=== PATIENT | male | born 2005 | race Caucasian/White ===

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

== ENCOUNTER 2024-09-28 09:28 | Emergency (ER) | payer OTHER, BC ==
[2024-09-28] MEDS: DIPH,PERTUS(ACELL)TETVAC-LF 0.5 ML VIAL IM ONE (10:03)
[2024-09-28] MEDS: BACITRACIN OINT 1 EACH PACKET TOPICAL ONE (10:04)
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
[2024-09-28 11:33] VITALS: BP 113/62; PULSE 78; RESP 20; TEMP 98.4
== END 2024-09-28 11:33 | disposition home or self-care (01) ==
LOC: EC 09:28
DX: S00.83XA Contusion of other part of head, initial encounter (principal); S50.311A Abrasion of right elbow, initial encounter; Z23 Encounter for immunization; V89.2XXA Person injured in unspecified motor-vehicle accident, traffic, initial encounter; Y92.410 Unspecified street and highway as the place of occurrence of the external cause
CPT/HCPCS: 70450; 72125; 90471; 90715; 99284